=== PATIENT | female | born 1950 | race Caucasian/White ===

== ENCOUNTER → 2017-03-10 | Day surgery (SDC) | payer MEDICARE ==
[~2017-03-10] VITALS: Ht 167.6 cm; Wt 122.5 kg
[~2017-03-10] MED LIST: Atropine 0.4 mg/mL Inj IVPUSH PRN; ESTR0.5T PO; IBUP200T48 PO; Lactated Ringer's 1,000 ML IV ONE; Lactated Ringer's 1,000 ML IV SCH; MetoCLOpramide 5 mg/mL 2 mL Inj IVPUSH PRN; Ondansetron 2 mg/mL 2 mL Inj IVPUSH PRN; Ondansetron 2 mg/mL 2 mL Inj ONE; PROV5 PO; Propofol 10,000 mCg/mL 20 mL Inj ONE; RES30 PO; fentaNYL-PF 50 mCg/mL 2 mL Inj ONE
[2017-03-10 14:24] VITALS: BP 135/87; PULSE 81; RESP 16; O2SAT 97
--- NOTE | 2017-03-10 15:14 | PCM.HPANE ---
Patient Data Surgeon Admitting Provider: Attending Provider:Jatinder Hernandez MD Primary Care Physician:Anali Downing MD Other Provider:Kadi Gonzalezingham Anesthesia Reason for Visit Colon Ca Screening Ht/WT & BMI Height (Feet): 5 Height (Inches): 6 Weight (Kilograms): 122.47 Body Mass Index 43.00 Allergies Coded Allergies: prednisone (Verified Allergy, Severe, psychotic episode, 03/06/17) Uncoded Allergies: Prednisone (Adverse Reaction, Intermediate, psychotic episode, 01/02/04) Past Anesthesia History Anesthesia History: Positive for:: Anesthesia Reactions (NAUSEA), Denies:: Fam Anesthesia Reaction Diabetes History Hx Diabetes?: No MRSA MRSA: No Medications Hypertension Medication: No Home Meds Incl Beta Mainor: No Reported Medications Temazepam 30 Mg Cap30 Mg PO HS PRN For Insomnia 30 Days Ref 0 03/06/17 IBUPROFEN-Expunged Drug, Do Not Renew! 200 Mg [id number] Mg PO Q8 prn 08/29/10 MedroxyPROGESTERone-Expunged Drug, Do Not Aj (Provera-Expunged Drug, Do Not Renew!)5 Mg Tablet5 Mg PO HS 08/29/10 Estradiol-Expunged Drug, Do Not Renew! (Estrace-Expunged Drug, Do Not Renew!) 0.5 Mg Tablet0.5 Mg PO HS 08/29/10 Discontinued Reported Medications Temazepam-Expunged Drug, Do Not Renew! 15 Mg [id number] Mg PO HS 08/29/10 No Historical Medication Ea Ref 0 09/21/08 History History of ENT Problems?: No HEENT History: Positive for:: Sinus Problem (s/p deviated septum) Denies:: Abnormal Airway Cataracts Difficult Intubation Dysphagia Glaucoma Hearing Problem TMJ Denture Type: None Teeth Condition: Within Normal Limits Hx of Heart Problems?: No Cardiovascular History: Positive for:: Chest Pain (last couple of months, attributes it to GERD) Edema (legs swell periodically if she sits too long) Denies:: Cardiac Surgery Congestive Heart Failure Heart Murmur Hypertension Irregular Heartbeat Pacemaker Thrombophlebitis Hx of Respiratory Problem?: No Respiratory History: Positive for:: Pneumonia (4th grade) Denies:: Asthma COPD Chest Surgery Dyspnea Emphysema Hemoptysis Tuberculosis Hx Neurologic Problems?: Yes Neurological History: Positive for:: Headaches Denies:: Alzheimer's Disease CVA Dementia Dizziness Parkinson's Disease Seizures Hx of GI Problems?: No Hx of Problems?: No Genitourinary History: Positive for:: Urinary Tract Infection (has had before but not very many) Denies:: Kidney Stones Female Hx: Denies:: Endometriosis Pelvic Inflammatory Skin History: Denies:: History Skin Disorders? Hx Musculoskeletal Problems?: Yes Musculoskeletal History: Positive for:: Musculoskeletal Trauma (broke nose with fall one yr ago) Denies:: Back Injury Joint Replacement Psycho Social History: Denies:: Anxiety Bipolar Disorder Hx Depression Hx Surgeries?: Yes (ANKLE, VERICOSE VEINS, ROTATOR CUFF, ) Hx Any Other Health Problems?: No Other History: Denies:: Cancer Endocrine Disease Hospitalization Thyroid Disease History Blood Transfusions: Denies:: Blood Transfusions Hx Diabetes: No Hx Alcohol Use: Yes (OCCASIONAL)Hx Substance Use: No Stop/Bang Treated for Sleep Apnea?: Yes Do You Have a CPAP Machine?: No (WEARS MOUTH ERIKA) FELICIA Risk Assessment: High Risk, =/>3 Yes Risk Assessment Category Category 1A: Patient has history of documented sleep apnea, and HAS NOT received any narcotic, sedative or anesthesia administration during this stay. Category 1B: Patient has history of documented sleep apnea, and HAS received any narcotic , sedative or anesthesia administration during this stay Category 2: Patient has SUSPECTED Obstructive Sleep Apnea, and HAS received any narcotic , sedative or anesthesia administration during this stay. Category 3: Patient has SUSPECTED Obstructive Sleep Apnea and HAS NOT received narcotic, sedative or anesthesia administration during this stay. Category 4: Outpatient in Procedural Areas with known sleep apnea or who screen positive for High Risk via the STOP/BANG questionnaire. Exam Exam Vital Signs Vital Signs Date Time Temp Pulse Resp B/P Pulse Ox O2 Delivery O2 Flow Rate FiO2 03/10/17 14:24 81 16 135/87 97 Room Air General Appearance: Alert, Oriented X3, Cooperative, No Acute Distress HEENT/AIRWAY: MP 2 Lungs: Clear to Auscultation, Normal Air Movement Heart: Exam Unremarkable, Regular Rate/Rhythm, No Murmurs/Rubs/Gallops Meds/Labs/Diagnostics Admission Meds Current Medications Lactated Ringer's (Lr) 1,000 ml @ 10 mls/hr Q24H ONCE IV Last administered on 03/10/17t 14:40; Start 03/10/17 at 06:00; Stop 03/11/17 at 05:59 Plan Impression Patient chart reviewed, patient interviewed and anesthestic plan with risks, benefits, and alternatives discussed, and informed consent obtained. NPO per Anesth. Guidelines: Yes ASA Physical Status: ASA3 Severe Disease Anesthetic Plan: GA Bene/Risks/Altern/Consents: Yes HP Complete Prior to Induction: Yes Geoffrey Garza MD Mar 10, 2017 15:04
[2017-03-10 15:59] VITALS: BP 111/69; PULSE 76; RESP 14; O2SAT 96
--- NOTE | 2017-03-10 16:01 | PCM.ANEP1 ---
Post Anesthesia PACU Phase 1 Assessment Vital Signs Vital Signs Date Time Temp Pulse Resp B/P Pulse Ox O2 Delivery O2 Flow Rate FiO2 03/10/17 15:59 76 14 111/69 96 Room Air 03/10/17 14:24 81 16 135/87 97 Room Air Anesthetic Administered: GA Level of Alertness: Sleepy, easy to arouse MCCLAIN's with Equal Strength: Yes Pain: No Nausea or Vomiting: No CV Function & Hydration Stable: Yes Airway Device: Oxygen Delivery: Room Air Lungs: Clear to Auscultation, Normal Air Movement PACU Phase 2 Assessment Complications: No Follow up Care: N/A Patient Instructions Provided: N/A Geoffrey Garza MD Mar 10, 2017 16:01
[2017-03-10 16:12] VITALS: BP 111/69; PULSE 71; RESP 16; O2SAT 94
[2017-03-10 16:18] VITALS: BP 143/76; PULSE 72; RESP 15; O2SAT 99
[2017-03-10 16:24] VITALS: BP 129/79; PULSE 63; RESP 16; O2SAT 95
--- NOTE | 2017-03-10 21:52 | ENDO ---
[address] [address] ENDOSCOPY PROCEDURE PATIENT: DANIELA LAWRENCE : 1950 MR#: [id number] ADMIT: 03/10/2017 JOB ID: [id number] DATE: 03/10/2017 PROCEDURE: Colonoscopy with hot snare polypectomy. INDICATIONS: A 66-year-old female who reports for colon cancer screening. EQUIPMENT: [id number]. SEDATION: Monitored anesthesia as provided by Dr. Geoffrey Garza. COMPLICATIONS: None identified. BOWEL PREPARATION: Fair, adequate exam. PROCEDURE INFORMATION: After the risks and benefits were explained, written and verbal informed consent was obtained, the patient was brought into the endoscopy suite and placed into the left lateral decubitus position. Sedation was achieved as above. Digital rectal examination was accomplished. No significant pathology apart from some minimal internal hemorrhoids noted. The scope was introduced into the rectum and advanced under direct visualization to the level of the cecum, as identified by the appendiceal orifice and ileocecal valve. The scope was slowly withdrawn to carefully examine the mucosa for any defects or lesions. Multiple direct views were made through the dentate line for exclusion of pathology. The colon was decompressed. The scope removed from the patient who tolerated the procedure well. FINDINGS: In the transverse, there was a small, perhaps 5 mm polyp removed with hot snare. I did not appreciate any other significant pathology throughout. ENDOSCOPIC DIAGNOSIS: 1. Mild internal hemorrhoids. 2. Small colon polyp. RECOMMENDATIONS: 1. Await histopathology. 2. If adenomatous features are confirmed, repeat colonoscopy will be suggested for five years' time.
--- NOTE | 2017-03-13 18:38 | PATH ---
SURGICAL PATHOLOGY Attending Physician:Sol Huerta CASE STATUS: Signed Out PATIENT NAME: DANIELA LAWRENCE PID: [id number] : 1950 DATE COLLECTED:03/10/2017 00:00 SPECIMEN: Colon, Polyp CLINICAL HISTORY: POLYP 1). TRANSVERSE COLON POLYP FINAL DIAGNOSIS: 1.TRANSVERSE COLON POLYP, POLYPECTOMY: TUBULAR ADENOMA. ICD10 D12.3 GROSS DESCRIPTION: The specimen is received in one formalin filled container labeled with the patient's name, sublabeled "transverse colon polyp" and consists of a 0.2 x 0.2 x 0.2 CM portion of tissue which is entirely submitted in one cassette. 03/11/2017DC MICRO DESCRIPTION: See diagnosis. ICD-9 CODES: CPT CODES: 1: 11438 Electronically Signed Out Lucho Albright MD, Ph.D. [facility] Pathology [facility] [address], [place] [address] Technical component performed at [facility], [facility] [address], [place], [address]
== END | disposition home or self-care (01) ==
LOC: END 00:23
PROVIDERS: ATTEND Internal Medicine Gastroenterology
DX: Z12.11 Encounter for screening for malignant neoplasm of colon (principal); D12.3 Benign neoplasm of transverse colon; K64.8 Other hemorrhoids; G47.33 Obstructive sleep apnea (adult) (pediatric); E66.01 Morbid (severe) obesity due to excess calories; Z68.41 Body mass index [BMI] 40.0-44.9, adult
CPT/HCPCS: 45385; J2405; J2704; J3010; J7120